=== PATIENT | male | born 1950 | race Asian ===

== ENCOUNTER 2017-11-17 11:05 | Day surgery (SDC) | payer OTHER ==
[2017-11-17] MEDS ORDERED: FENTAnyl 50 MCG/ML VIAL (13:43)
[2017-11-17] MEDS ORDERED: PROPOFOL 20 ML (13:43)
[2017-11-17] MEDS ORDERED: MIDAZOLAM 1 MG/ML 2 ML INJ (13:43)
== END 2017-11-17 16:24 | disposition home or self-care (01) ==
LOC: GIL 11:05
DX: D12.2 Benign neoplasm of ascending colon (principal); K62.1 Rectal polyp; Z85.038 Personal history of other malignant neoplasm of large intestine; I10 Essential (primary) hypertension; E11.9 Type 2 diabetes mellitus without complications
CPT/HCPCS: 45380; 82962; 88305